=== PATIENT | male | born 1960 | race Caucasian/White ===

== ENCOUNTER 2016-06-23 09:12 | Emergency (ER) | payer SELFPAY ==
[2016-06-23 09:12] VITALS: BMI 29.0
[2016-06-23 09:17] VITALS: RESP 18
--- NOTE | 2016-06-23 09:38 | C.PDOC ---
History Of Present Illness 55 yr old male w/previous hx of B/L shoulder pains, presents to the ER for re- evaluation R>L shoulder apin for past few days. Pt describes shoulder pain as intermittently, localized, frontal, worse with arms movement. Pt admits, similar sx in past when was seen in ED on 05/06/2016. He states he is right hand dominant, and cleans for occupation requiring repetitive motions. Denies known recent trauma or injury, denies chest pain, SOB, dyspnea, diaphoresis, neck pain , back pain, denies weakness or numbness to B/L UEs. Ambulate to ED for evaluation, not in any apparent distress. Time Seen by Provider: 06/23/16 09:24 Chief Complaint (Nursing): Upper Extremity Problem/Injury Past Medical History Reviewed: Historical Data, Nursing Documentation, Vital Signs Vital Signs: Last Vital Signs Temp 97.6 F 06/23/16 10:25 Pulse 110 H 06/23/16 10:25 Resp 18 06/23/16 10:25 BP 127/91 H 06/23/16 10:25 Pulse Ox 98 06/23/16 10:25 - Medical History PMH: Asthma (NO MEDS), HTN (not on meds) Family History: States: No Known Family Hx - Social History Hx Tobacco Use: No (states he recently quit) Hx Alcohol Use: Yes Hx Substance Use: No - Immunization History Hx Tetanus Toxoid Vaccination: No Hx Influenza Vaccination: No Hx Pneumococcal Vaccination: No Review Of Systems Except As Marked, All Systems Reviewed And Found Negative. Cardiovascular: Negative for: Chest Pain Respiratory: Negative for: Shortness of Breath Musculoskeletal: Positive for: Shoulder Pain (Bilateral shoulder pain ). Negative for: Neck Pain, Back Pain Neurological: Negative for: Weakness, Numbness Physical Exam - Physical Exam Appears: Well, Non-toxic, No Acute Distress Skin: Normal Color, Warm, Dry, No Rash, No Ecchymosis Eye(s): bilateral: Normal Inspection Nose: Normal Throat: Normal, No Erythema, No Exudate, No Drooling Neck: Normal, Normal ROM, No Midline Cervical Tenderness, No Paracervical Tenderness, No Step Off Deformity, Supple Chest: Symmetrical, No Deformity Cardiovascular: Rhythm Regular Respiratory: Normal Breath Sounds Gastrointestinal/Abdominal: Normal Exam, Soft, No Tenderness Back: Normal Inspection Extremity: Normal ROM, Tenderness (R>L shoulder tenderness over superior aspect. Mild discomfort to B/L shoulder abduction/extension. No neurovascular deficits.), Capillary Refill (less than 2sec to B/L hands), No Deformity, No Swelling Extremity: Bilateral: Atraumatic Neurological/Psych: Oriented x3, Normal Speech, Normal Motor, Normal Sensation, Normal Reflexes ED Course And Treatment O2 Sat by Pulse Oximetry: 95 Pulse Ox Interpretation: Normal Progress Note: Records from previous visits review. Pt was seen on 05/06/2016 due to same complaints of B/L shoulder pain, when xray of Rt shoulder performed with normal findings. On re-evaluation, pt is afebrile, hemodynamiclay stable. Mild HTN noted on triage, pt denies any associated sx. Neurologicaly intact. B/L UEs: exam c/w shoulder tendonitis, no neurovascular deficits. Pt advised and ref. to F/U with PMD, Ortho in 2-3 days for re-eavl. return if any new changes. Medical Decision Making Medical Decision Making: PLAN: * Prednisone PO * Toradol IM Disposition Counseled Patient/Family Regarding: Diagnosis, Need For Followup, Rx Given - Disposition Referrals: [facility] [Outside] [facility] [Outside] [facility] [Outside] Disposition: HOME/ ROUTINE Disposition Time: 09:55 Condition: STABLE Additional Instructions: Light duty to shoulder area. Avoid heavy lifting, pushing, etc. Take medication as prescribed Follow up with PMD and Orthopedist in 2-3 days for re-evaluation. Call Clinic to make appointment for Orthopedist. Ortho clinic on . Prescriptions: Prednisone [Deltasone] 20 mg PO DAILY #3 tablet Methocarbamol [Robaxin] 500 mg PO TID #14 tab traMADol [Ultram] 50 mg PO TID #7 tab Instructions: Rotator Cuff Tendinitis (ED), Shoulder Bursitis (ED) - Clinical Impression Clinical Impression: Shoulder tendonitis
[2016-06-23 10:33] VITALS: BP 127/91; PULSE 110; TEMP 97.6
[2016-06-23 13:33] VITALS: O2SAT 95
== END 2016-06-23 10:40 | disposition home or self-care (01) ==
LOC: C.ER 09:12
DX: M70.812 Other soft tissue disorders related to use, overuse and pressure, left shoulder (principal); M70.811 Other soft tissue disorders related to use, overuse and pressure, right shoulder; Y93.89 Activity, other specified
CPT/HCPCS: 96372; 99285; J1885

== ENCOUNTER 2017-10-28 07:32 | Emergency (ER) | payer SELFPAY ==
[2017-10-28 07:32] VITALS: BMI 29.0
[2017-10-28 07:38] VITALS: BP 152/96; PULSE 95; RESP 20; TEMP 98.2; O2SAT 95
--- NOTE | 2017-10-28 07:53 | C.PDOC ---
History Of Present Illness 57 y/o male presents to the ER complaining of itchy rash on bilateral forearms which has been present for the past 5 days. Patient states that the rash started after he was cutting grass. Patient reports that he has been using Benadryl and OTC hydrocortisone cream without improvement. Denies having SOB, wheezing, lip/ tongue swelling, fever, and chills. Time Seen by Provider: 10/28/17 07:33 Chief Complaint (Nursing): Abnormal Skin Integrity History Per: Patient History/Exam Limitations: no limitations Onset/Duration Of Symptoms: Days Current Symptoms Are (Timing): Still Present Quality Of Symptoms: Itching Severity: Moderate Past Medical History Reviewed: Historical Data, Nursing Documentation, Vital Signs Vital Signs: Last Vital Signs Temp 98.2 F 10/28/17 07:35 Pulse 95 H 10/28/17 07:35 Resp 20 10/28/17 07:35 BP 152/96 H 10/28/17 07:35 Pulse Ox 95 10/28/17 10:36 - Medical History PMH: Asthma (NO MEDS), HTN (not on meds) Other Surgeries: Hx of surgeries Family History: States: No Known Family Hx - Social History Hx Tobacco Use: No (states he recently quit) Hx Alcohol Use: Yes Hx Substance Use: No - Immunization History Hx Tetanus Toxoid Vaccination: No Hx Influenza Vaccination: No Hx Pneumococcal Vaccination: No Review Of Systems Except As Marked, All Systems Reviewed And Found Negative. Constitutional: Negative for: Fever, Chills Respiratory: Negative for: Shortness of Breath, Wheezing Skin: Positive for: Rash (bilateral forearms) Physical Exam - Physical Exam Appears: Non-toxic, No Acute Distress, Other (comfortable) Skin: Normal Color, Warm, Dry, Other (bilateral forearms - clear fluid filled blisters in linear arrangements) Head: Atraumatic, Normacephalic Eye(s): bilateral: Normal Inspection Nose: Normal Oral Mucosa: Moist Neck: Supple Chest: Symmetrical Cardiovascular: Rhythm Regular Respiratory: Normal Breath Sounds, No Rales, No Rhonchi, No Wheezing Neurological/Psych: Oriented x3, Normal Speech ED Course And Treatment O2 Sat by Pulse Oximetry: 95 (RA) Pulse Ox Interpretation: Normal Progress Note: Patient treated with Prednisone PO and Benadryl PO. Patient has been discharged with prescriptions for Prednisone and Calamine Lotion and instructed to follow up with PMD in 1-2 days. Disposition Counseled Patient/Family Regarding: Diagnosis, Need For Followup, Rx Given - Disposition Referrals: Jodi Aguilera MD [Medical Doctor] - Disposition: HOME/ ROUTINE Disposition Time: 08:10 Condition: STABLE Additional Instructions: FOLLOW UP WITH YOUR DOCTOR IN 1-2 DAYS CONTINUE USING DIPHENHYDRAMINE NEEDED FOR ITCHING RETURN TO EMERGENCY ROOM IF SYMPTOMS WORSEN SEGUIMIENTO CON PACK MDICO EN 1-2 ALICEA CONTINE USANDO DIFENHIDRAMINA SEGN SEA NECESARIO PARA EL JANUARY REGRESE AL GRETEL DE EMERGENCIA SI LOS SNTOMAS EMPEORAN Prescriptions: Calamine/Zinc Oxide [Calamine Lotion] 1 appl TP TID #1 bottle predniSONE [predniSONE Tab] 40 mg PO DAILY #6 tab Instructions: Poison Nancy, Poison Ingraham, Poison Sumac (DC) Forms: [employer] (Ivorian) Print Language: LITHUANIAN - Clinical Impression Clinical Impression: Contact dermatitis due to poison nancy - Scribe Statement The provider has reviewed the documentation as recorded by the Prietoibizabela Viera Provider Attestation: All medical record entries made by the Scribe were at my direction and personally dictated by me. I have reviewed the chart and agree that the record accurately reflects my personal performance of the history, physical exam, medical decision making, and the department course for this patient. I have also personally directed, reviewed, and agree with the discharge instructions and disposition.
== END 2017-10-28 08:03 | disposition home or self-care (01) ==
LOC: C.ER 07:32
DX: L25.5 Unspecified contact dermatitis due to plants, except food (principal)